=== PATIENT | male | born 1980 | race Caucasian/White ===

== ENCOUNTER 2016-11-08 18:14 | Emergency (ER) | payer MEDICARE ==
[2016-11-08 19:10] LABS: HEMOGLOBIN 18.2 gm/dl (14.0-17.5); RED BLOOD COUNT 5.67 M/UL (4.20-5.50); WHITE BLOOD COUNT 10.2 K/UL (4.5-11.0)
[2016-11-08 20:21] LABS: BUN/CREATININE RATIO 15 (0-10)
== END 2016-11-08 23:17 | disposition home or self-care (01) ==
LOC: ER1 18:14
PROVIDERS: Specialist/Technologist Athletic Trainer
DX: R10.32 Left lower quadrant pain (principal); R31.9 Hematuria, unspecified; R79.89 Other specified abnormal findings of blood chemistry; R19.7 Diarrhea, unspecified; I11.0 Hypertensive heart disease with heart failure; I50.9 Heart failure, unspecified; Z79.899 Other long term (current) drug therapy
CPT/HCPCS: 36415; 71020; 80053; 81001; 83690; 85025; 85379; 96361; 96374; 96375; 99284; J1885; J2270; J2405